=== PATIENT | female | born 1980 | race Caucasian/White ===

== ENCOUNTER 2020-01-13 14:57 | Emergency (ER) | payer OTHER ==
[~2020-01-13] VITALS: Ht 152.4 cm; Wt 74.8 kg
[~2020-01-13 14:57] MED LIST: ABILIFY10 MG PO; AMBIEN 5 MG TABL5 M1 PO; AMITRIPTYLINE H25 M2 PO; AMOXICILLIN 50500 MG PO; ANTIPYRINE-BENZ10 ML OT; BACTRIM DS TAB1 EACH PO; CLONAZEPAM 0.50.5 M1 PO; FETZIMA40 MG PO; KEFLEX500 MG PO; PREDNISONE 20 M20 M1 PO
[2020-01-13] MEDS ORDERED: MOBIC7.5 MG PO (17:11)
[2020-01-13] MEDS ORDERED: NORCO 5-325 TA1 EAC2 PO (17:11)
[2020-01-13 17:17] VITALS: BP 148/94
== END 2020-01-13 17:17 | disposition home or self-care (01) ==
LOC: ER 14:57
DX: S83.91XA Sprain of unspecified site of right knee, initial encounter (principal); J45.909 Unspecified asthma, uncomplicated; F32.9 Major depressive disorder, single episode, unspecified; F41.9 Anxiety disorder, unspecified; F17.210 Nicotine dependence, cigarettes, uncomplicated; Z88.6 Allergy status to analgesic agent; Z88.8 Allergy status to other drugs, medicaments and biological substances; X58.XXXA Exposure to other specified factors, initial encounter; Y93.9 Activity, unspecified; Y92.89 Other specified places as the place of occurrence of the external cause; Y99.8 Other external cause status

== ENCOUNTER 2020-02-18 18:09 | Emergency (ER) | payer OTHER ==
[~2020-02-18] VITALS: Ht 152.4 cm; Wt 74.8 kg
[~2020-02-18 18:09] MED LIST changes: +MOBIC7.5 MG PO; +NORCO 5-325 TA1 EAC2 PO
[2020-02-18 21:36] LABS: BF CRYSTALS No Crystals seen; SOURCE SYNOVIAL
[2020-02-18 21:37] LABS: BF RBC 14185 /mm3; CLARITY TURBID; COLOR RED; SOURCE SYNOVIAL; TOTAL VOLUME 37 mL
[2020-02-18 21:38] LABS: BF NUCLEATED CELLS 329 /mm3
[2020-02-18 22:13] VITALS: BP 135/92
[2020-02-18 22:23] LABS: BF MACROPHAGE 31 %; BF NEUTROPHILS 52 %
== END 2020-02-18 22:18 | disposition left against medical advice (07) ==
LOC: ER 18:09
PROVIDERS: Emergency Medicine
DX: M25.461 Effusion, right knee (principal); F32.9 Major depressive disorder, single episode, unspecified; J45.909 Unspecified asthma, uncomplicated; F41.9 Anxiety disorder, unspecified; F17.210 Nicotine dependence, cigarettes, uncomplicated; Z88.6 Allergy status to analgesic agent; Z88.8 Allergy status to other drugs, medicaments and biological substances

== ENCOUNTER 2020-03-16 13:33 | Emergency (ER) | payer OTHER ==
[~2020-03-16] VITALS: Ht 152.4 cm; Wt 74.8 kg
[2020-03-16] MEDS ORDERED: NORCO 5-325 TA1 EAC2 PO (14:24)
[2020-03-16 14:47] VITALS: BP 149/103
== END 2020-03-16 14:48 | disposition home or self-care (01) ==
LOC: ER 13:33
DX: M25.561 Pain in right knee (principal); M79.89 Other specified soft tissue disorders; J45.909 Unspecified asthma, uncomplicated; F32.9 Major depressive disorder, single episode, unspecified; F41.9 Anxiety disorder, unspecified; F17.210 Nicotine dependence, cigarettes, uncomplicated; Z88.6 Allergy status to analgesic agent; Z88.8 Allergy status to other drugs, medicaments and biological substances